=== PATIENT | male | born 1950 | race Caucasian/White ===

== ENCOUNTER → 2016-08-16 | Outpatient (REF) | payer BC ==
[2016-08-16 13:41] LABS: IMMUNOGLOBULIN G 790 MG/DL (681-1648); IMMUNOGLOBULIN M 141 MG/DL (40-230); TOTAL PROTEIN 6.3 GM/DL (6.4-8.2)
[2016-08-18 00:07] LABS: FREE KAPPA LIGHT CHAINS SERUM 32.01 mg/L (3.30-19.40); FREE LAMBDA LIGHT CHAINS SERUM 15.94 mg/L (5.71-26.30); KAPPA/LAMBDA RATIO SERUM 2.01 (0.26-1.65)
[2016-08-18 12:30] LABS: ALBUMIN 3.94 GM/DL (3.29-5.55); ALBUMIN % 62.6 % (55.8-66.1); GAMMA GLOBULIN % 12.1 % (11.1-18.8)
== END ==
LOC: M LAB REF 12:30
PROVIDERS: ATTEND Internal Medicine Medical Oncology
DX: C91.10 Chronic lymphocytic leukemia of B-cell type not having achieved remission (principal)

== ENCOUNTER → 2016-10-18 | Outpatient (REF) | payer BC ==
[2016-10-18 13:28] LABS: INR 1.06
== END ==
LOC: M LAB REF 12:54
PROVIDERS: ATTEND Internal Medicine Medical Oncology
DX: C91.10 Chronic lymphocytic leukemia of B-cell type not having achieved remission (principal)